=== PATIENT | male | born 1950 | race Caucasian/White ===

== ENCOUNTER 2019-10-16 06:38 | Day surgery (SDC) | payer MEDICARE ==
[2019-10-10 12:13] LABS: BASOPHILS # (AUTO) 0.1 X10'3 (0-0.2); BASOPHILS % (AUTO) 1.3 % (0-1); EOSINOPHILS # (AUTO) 0.3 X10'3 (0-0.9); EOSINOPHILS % (AUTO) 3.8 % (0-6); LYMPHOCYTES # (AUTO) 2.1 X10'3 (1.1-4.8); LYMPHOCYTES % (AUTO) 27.9 % (21-51); MEAN CORPUSCULAR HEMOGLOBIN 31.7 PG (27.0-31.0); MEAN CORPUSCULAR HGB CONC 34.5 g/dL (33.0-36.5); MEAN CORPUSCULAR VOLUME 91.9 FL (78-98); MEAN PLATELET VOLUME 7.1 FL (7.4-10.4); MONOCYTES # (AUTO) 0.8 X10'3 (0-0.9); NEUTROPHILS # (AUTO) 4.3 X10'3 (1.8-7.7); PRE OP HEMATOCRIT 45.7 % (42.0-52.0); PRE OP HEMOGLOBIN 15.8 g/dL (14.0-17.9); PRE OP PLATELET COUNT 220 X10'3 (140-440); RED BLOOD COUNT 4.97 X10'6 (4.70-6.10)
[2019-10-10 12:27] LABS: CLARITY,URINE CLEAR (Clear); COLOR,URINE STRAW (Yellow); GLUCOSE, URINE NEGATIVE (Neg); KETONES,URINE NEGATIVE (Neg); LEUKOCYTE ESTERASE ,URINE NEGATIVE (Neg); NITRITES, URINE NEGATIVE (Neg); OCCULT BLOOD,URINE SMALL (Neg); PROTEIN,URINE NEGATIVE (Neg); UROBILINOGEN,URINE 0.2 E.U/dL (0.2-1.0)
[2019-10-10 12:30] LABS: UA COLLECTION TYPE VOIDED
[2019-10-10 12:37] LABS: BACTERIA,URINE NONE SEEN /HPF (Neg); RBC,URINE NONE SEEN /HPF (0-2); SQUAMOUS EPITHELIAL CELL,UR NONE SEEN /LPF (FEW); WBC,URINE 0-4 /HPF (0-4)
[2019-10-10 12:44] LABS: ALBUMIN 4.3 G/DL (3.4-5.0); ALBUMIN/GLOBULIN RATIO 1.3 (1.1-1.5); ALKALINE PHOSPHATASE 64 IU/L (46-116); BLOOD UREA NITROGEN 14 MG/DL (7-18); BUN/CREATININE RATIO 13.1 (5.4-32.0); CALCIUM 9.1 MG/DL (8.5-10.1); CHLORIDE 105 MMOL/L (99-107); CREATININE 1.07 MG/DL (0.60-1.10); PRE OP ALT 58 U/L (30-65); PRE OP ANION GAP 9 (8-16); PRE OP AST 27 U/L (10-37); PRE OP BILIRUB, TOTAL 0.6 MG/DL (0.0-1.0); PRE OP GLUCOSE 94 MG/DL (70-104); PRE OP POTASSIUM 4.4 MMOL/L (3.4-5.1); PRE OP SODIUM 139 MMOL/L (135-145); TOTAL CARBON DIOXIDE 25.2 MMOL/L (24-32); TOTAL PROTEIN 7.6 G/DL (6.4-8.2); eGFR 69 ML/MIN
[2019-10-10 13:05] LABS: PRE OP INR 1.1 INR; PRE OP PROTIME 11.4 SECONDS (9.0-12.0)
[2019-10-16] VITALS (15 sets, daily range): BP systolic 115–162; BP diastolic 58–88
[~2019-10-16] VITALS: Ht 180.3 cm; Wt 92.0 kg
[~2019-10-16 06:38] MED LIST: ASPI-1265 PO; ATOR40TA PO; GLUC1CAP36 PO; LOSA50TA3 PO; MULT-1074 PO; SILD50TA PO; cefazolin/dext.iso 2gm/100ml 100 ML IV ONE; famotidine 10mg tablet PO ONE; ringers solution, lacted 1,000 ML IV SCH
[2019-10-16] MEDS ORDERED: LIDOcaine 1% (10mg/ml) 2ml vial ONE (07:33)
[2019-10-16] MEDS ORDERED: BUPIVAcaine/PF 2.5 mg/ml (0.25%) 30ml vial ONE (07:33)
[2019-10-16] MEDS ORDERED: ceFAZolin 1000mg inj ONE (07:33)
[2019-10-16] MEDS ORDERED: sevoflurane 250ml liquid IH ONE (12:07)
[2019-10-16] MEDS ORDERED: acetaminophen 1000 MG/100ml vial IV ONE (12:07)
[2019-10-16] MEDS ORDERED: glycopyrrolate 0.2mg/ml inj ONE (12:07)
[2019-10-16] MEDS ORDERED: midazolam 2 mg/2 ml injection ONE (12:12)
[2019-10-16] MEDS ORDERED: fentaNYL /PF 50mcg/ml 5ml ampule ONE (12:13)
[2019-10-16] MEDS ORDERED: propofol inj 20 ML IV ONE (12:35)
[2019-10-16] MEDS ORDERED: LIDOcaine 2% (20mg/ml) 5ml vial ONE (12:35)
[2019-10-16] MEDS ORDERED: ondansetron/PF 4mg/2ml inj ONE (12:35)
[2019-10-16] MEDS ORDERED: rocuronium 10mg/ml inj IV ONE (12:35)
[2019-10-16] MEDS ORDERED: dexamethasone sod phosphate 4mg/ml inj. ONE (12:35)
[2019-10-16] MEDS ORDERED: neostigmine methylsulfate 1 MG/ML 10ml vial ONE (12:56)
--- NOTE | 2019-10-16 13:12 | NUR ---
Received from OR via [facility] , accompanied by Anesthesiologist DR RODRIGUEZ and report given by Anesthesiologist. PT DROWSY, DENIES PAIN, ABDOMEN W/2 LAP SITES W/BANDAIDS CDI. Addendum: 10/16/19 at 1337 by Apoorva Carranza RN Amended: Links added.
[2019-10-16] MEDS ORDERED: ringers solution, lacted 1,000 ML IV SCH (13:13)
[2019-10-16] MEDS ORDERED: proCHLORperazine 10 MG/2 ml inj IV PRN (13:15)
[2019-10-16] MEDS ORDERED: morphine 4 MG/ML inj SYRINge IV PRN ×2 (13:15)
[2019-10-16] MEDS ORDERED: ketorolac trometh. 30mg/ml inj. IV ONE (13:15)
[2019-10-16] MEDS ORDERED: ondansetron/PF 4mg/2ml inj IV PRN (13:15)
[2019-10-16] MEDS ORDERED: meperidine/PF 25mg/ml syringe IV PRN ×3 (13:15)
[2019-10-16] MEDS ORDERED: HYDROcodone/acetaminophen 5mg/325mg tablet PO ONE (15:40)
[2019-10-16] MEDS ORDERED: LIDOcaine 2% 5ml jelly TOP ONE (17:25)
[2019-10-16] MEDS ORDERED: LIDOcaine 2% 10ml TOPICAL JELLY (Urojet) TP ONE (17:40)
--- NOTE | 2019-10-16 18:12 | NUR ---
PT VOID SMALL AMT OF URINE, CHECKED POST VOID RESIDUAL W/BLADDER SCANNER 515 ML, PT REQUESTED MORE TIME TO TRY, WAITED APPROX 1 HOUR AND PT VOID AGAIN SMALL AMT, POST VOID RESIDUAL PER BLADDER SCANNER WAS 310 ML URINE, CALLED AND DISCUSSED W/DR BARTON, ORDERS TO PLACE A VEGA CATHETER, 16 ESTONIAN VEGA CATHETER PLACED W/ASEPTIC TECHNIQUE, PT TOLERATED WELL, 500 ML URINE IN DRAINAGE BAG, TEACHING DONE AND BAG EMPTIED, PT AND PTS VERBALIZE UNDERSTANDING, FURTHER D/C INSTRUCTIONS GIVEN AND GONE OVER W/PT AND PTS WHOM VERBALIZE UNDERSTANDING, PT D/CD TO HOME VIA W/C TO PRIVATE VEHICLE W/O INCIDENT. Addendum: 10/16/19 at 1853 by Apoorva Carranza RN Amended: Links added.
--- NOTE | 2019-10-16 18:12 | NUR ---
PT VOID, POST VOID 515 ML URINE IN BLADDER, PT REQUESTED TO WAIT AND TRY TO VOID AGAIN, ALLOWED APPROX 1 HOUR, PT VOID AGAIN SMALL AMT, POST VOID RESIDUAL W/BLADDER SCANNER WAS 315 ML, CALLED AND DISCUSSED W/DR BARTON, ORDERS TO PLACE VEGA CATHETER. VEGA CATHETER PLACED W/ASEPTIC TECHNIQUE, PT TOLERATED WELL, 50
== END 2019-10-16 18:12 | disposition home or self-care (01) ==
LOC: PAS 06:38
PROVIDERS: ATTEND Surgery
DX: K40.20 Bilateral inguinal hernia, without obstruction or gangrene, not specified as recurrent (principal); I25.10 Atherosclerotic heart disease of native coronary artery without angina pectoris; I10 Essential (primary) hypertension; E78.5 Hyperlipidemia, unspecified; K21.9 Gastro-esophageal reflux disease without esophagitis; Z79.899 Other long term (current) drug therapy; Z95.1 Presence of aortocoronary bypass graft; Z96.659 Presence of unspecified artificial knee joint; Z98.890 Other specified postprocedural states; Z79.82 Long term (current) use of aspirin; Z79.01 Long term (current) use of anticoagulants
CPT/HCPCS: 36415; 49650; 80053; 81001; 82948; 85025; 85610; 85730; C1781; J0131; J0690; J1100; J1885; J2001; J2250; J2405; J2704; J2710; J3010; J3490; J7120; A4215; A4314; A4618; A6258

== ENCOUNTER 2022-12-20 12:46 | Day surgery (SDC) | payer MEDICARE ==
[2022-12-15 11:13] LABS: BASOPHILS # (AUTO) 0.1 X10'3 (0-0.2); BASOPHILS % (AUTO) 1.2 % (0-1); EOSINOPHILS # (AUTO) 0.3 X10'3 (0-0.9); EOSINOPHILS % (AUTO) 4.6 % (0-6); HEMATOCRIT 44.4 % (42.0-52.0); LYMPHOCYTES # (AUTO) 1.5 X10'3 (1.1-4.8); LYMPHOCYTES % (AUTO) 26.7 % (21-51); MEAN CORPUSCULAR HGB CONC 33.8 g/dL (33.0-36.5); MEAN CORPUSCULAR VOLUME 94.6 FL (78-98); MEAN PLATELET VOLUME 6.9 FL (7.4-10.4); MONOCYTES # (AUTO) 0.6 X10'3 (0-0.9); MONOCYTES % (AUTO) 10.6 % (2-12); NEUTROPHILS # (AUTO) 3.2 X10'3 (1.8-7.7); NEUTROPHILS % (AUTO) 56.9 % (42-75); PLATELET COUNT 171 X10'3 (140-440); RED BLOOD COUNT 4.69 X10'6 (4.70-6.10); WHITE BLOOD COUNT 5.7 X10'3 (4.5-11.0)
[2022-12-15 11:23] LABS: APTT 29 SECONDS (22-32)
[2022-12-15 11:31] LABS: ALBUMIN 3.6 G/DL (3.4-5.0); ANION GAP 6 (8-16); BLOOD UREA NITROGEN 13 MG/DL (7-18); BUN/CREATININE RATIO 12.9 (10.0-20.0); CALCIUM 8.8 MG/DL (8.5-10.1); CHLORIDE 107 MMOL/L (99-107); CHOL/HDL RATIO 2.4 (0.00-4.99); CHOLESTEROL 111 MG/DL (0-200); CREATININE 1.01 MG/DL (0.60-1.10); GLUCOSE 97 MG/DL (70-104); HDL CHOLESTEROL 46 MG/DL (35-60); LDL CHOLESTEROL 54 MG/DL (50-100); POTASSIUM 4.4 MMOL/L (3.5-5.1); SODIUM 140 MMOL/L (135-145); TOTAL CARBON DIOXIDE 27.5 MMOL/L (24-32); TRIGLYCERIDES 59 MG/DL (20-135); eGFR 73 ML/MIN
[2022-12-20] VITALS (12 sets, daily range): BP systolic 103–147; BP diastolic 52–71
[~2022-12-20] VITALS: Ht 180.3 cm; Wt 93.3 kg
[~2022-12-20 12:46] MED LIST changes: -cefazolin/dext.iso 2gm/100ml 100 ML IV ONE; -famotidine 10mg tablet PO ONE; -ringers solution, lacted 1,000 ML IV SCH
[2022-12-20] MEDS ORDERED: normal saline 1,000 ML IV SCH (13:00)
[2022-12-20] MEDS ORDERED: diphenhydrAMINE 25mg capsule PO PRN (13:00)
[2022-12-20] MEDS ORDERED: LORazepam 0.5 MG tablet PO PRN (13:00)
[2022-12-20] MEDS ORDERED: ISOS60TA71 PO (13:15)
[2022-12-20] MEDS ORDERED: FLO0.4C PO (13:15)
[2022-12-20] MEDS ORDERED: METO25TA6 PO (13:15)
[2022-12-20] MEDS ORDERED: nitroGLYCERIN-Tridil 50MG/D5W 250 ML IV ONE (15:03)
[2022-12-20] MEDS ORDERED: midazolam 1 mg/ML 2ml injection ONE (15:04)
[2022-12-20] MEDS ORDERED: LIDOcaine 1% (10mg/ml) 2ml vial ONE (15:04)
[2022-12-20] MEDS ORDERED: iohexol 350MG/ML 100ml bottle IV ONE (15:04)
[2022-12-20] MEDS ORDERED: heparin 1,000unit/ml 10ml vial 10 ML ONE (15:04)
[2022-12-20] MEDS ORDERED: verapamil 2.5 mg/ml inj IV ONE (15:04)
[2022-12-20] MEDS ORDERED: fentaNYL/PF 50MCG/1 ML 2ML syringe ONE (15:04)
[2022-12-20] MEDS ORDERED: LIDOcaine 1% 30ml preserv. free vial ONE (15:17)
[2022-12-20] MEDS ORDERED: iohexol 350 MG/ML 50ML vial IV ONE (15:31)
--- NOTE | 2022-12-20 19:51 | NUR ---
Gave report to Skye OVALLES. Pt to be transferred to ICU bed 9 for an outpatient hold for 2200 discharge time.
--- NOTE | 2022-12-20 20:00 | NUR ---
Pt transferred to ICU bed 9. Checked groin site with Skye OVALLES and site is CD&I without s/s hematoma or bleeding. Pt in stable condition, VSS, patient remains on bedrest.
--- NOTE | 2022-12-20 20:15 | NUR ---
Received patient in bed 2008. Patient is alert and oriented. is at bedside. Patient states he has not felt any chest pain today and has only felt chest pain in the past with exertion. He is in sinus bradycardia with occasional PACs which matches the 12 lead that was done on him earlier today. Rhythm strip printed and placed in chart. Pupils are perrla at 2mm. s1s2 heard on auscultation. breath sounds are clear throughout. patient is on room air sating in mid 90's. all other vital signs are stable. right groin with no hematoma. patient is very compliant about laying flat and is clear on instructions to sit up at 2130 as long as site continues to look good after sitting up. pulses are palpable and strong. Will continue to monitor.
--- NOTE | 2022-12-20 22:20 | NUR ---
Patient sat up at 2130 with no issues to the groin site. pulses remain strong. Patient walked around the unit and site was rechecked. groin and pulses remained the same. Patient didn't complain of any numbness tingling or pain. Vital signs remained stable throughout. Patient instructions were reviewed and given to patient. Patients states that he understands all instructions and all questions were answered. Patient was discharged with all of his belongings and brought down to the lobby via wheelchair by JOSR Cheung and met with his in the front of the lobby to be driven home.
== END 2022-12-20 22:26 | disposition home or self-care (01) ==
LOC: SSTAY O 12:46 → CICU 2S 20:26 → SSTAY O 22:26
PROVIDERS: ATTEND Student in an Organized Health Care Education/Training Program
DX: R94.39 Abnormal result of other cardiovascular function study (principal); I25.10 Atherosclerotic heart disease of native coronary artery without angina pectoris; I10 Essential (primary) hypertension; E78.5 Hyperlipidemia, unspecified; Z79.01 Long term (current) use of anticoagulants; K21.9 Gastro-esophageal reflux disease without esophagitis; Z79.82 Long term (current) use of aspirin; Z79.899 Other long term (current) drug therapy; Z98.890 Other specified postprocedural states
CPT/HCPCS: 36415; 80048; 80061; 85025; 85610; 85730; 93005; 93459; 99152; C1760; C1894; J1644; J2250; J3010; J3490; J7030; Q0163; Q9967; G0378